=== PATIENT | female | born 1990 | race Hispanic/Latino ===

== ENCOUNTER 2021-11-21 19:39 | Emergency (ER) | payer BC ==
[~2021-11-21] VITALS: Ht 170.2 cm; Wt 72.7 kg
[2021-11-21 21:23] LABS: BILIRUBIN, URINE MANUAL OBSCURED (NEGATIVE); GLUCOSE, URINE (UA) MANUAL NEGATIVE (NEGATIVE); KETONE, URINE MANUAL OBSCURED mg/dL (NEGATIVE); UROBILINOGEN, URINE MANUAL OBSCURED mg/dl (NORMAL)
[2021-11-21 21:51] LABS: RBC, URINE 0-1 /hpf (0-3); SQUAMOUS EPITHELIAL CELL URINE MOD AMOUNT /hpf (SMALL AMT)
[2021-11-21 21:52] LABS: BACTERIA, URINE SMALL AMOUNT; HYALINE CAST, URINE NONE SEEN /lpf (0-1); MUCUS, URINE SMALL AMOUNT (NEGATIVE)
[2021-11-21 21:53] LABS: AMORPHOUS SEDIMENT, URINE SMALL AMOUNT (NEGATIVE)
[2021-11-22] MEDS ORDERED: methocarbamoL 750 MG TAB PO ONE (01:20)
[2021-11-22] MEDS ORDERED: KETOROLAC 60MG 2ML VIAL IM ONE (01:20)
[2021-11-22] MEDS ORDERED: LIDOCAINE 5% (LIDODERM) PATCH TD ONE (01:20)
[2021-11-22 01:37] LABS: BASO % 0.2 % (0.0-1.0); EOS % 0.5 % (0.0-3.0); HEMATOCRIT 39.2 % (36.0-47.0); HEMOGLOBIN 12.7 g/dl (12.0-15.5); LYMPH # 0.8 10^3/uL (1.5-5.0); LYMPH % 9.6 % (24.0-44.0); MEAN CORPUSCULAR HEMOGLOBIN 30.8 pg (27.0-33.0); MEAN CORPUSCULAR HGB CONC 32.4 g/dl (32.0-36.5); MEAN CORPUSCULAR VOLUME 94.9 fl (80.0-96.0); MONO % 11.5 % (2.0-8.0); NEUTROPHILS # 6.8 10^3/uL (1.5-8.5); NEUTROPHILS % 77.9 % (36.0-66.0); PLATELET COUNT, AUTOMATED 226 10^3/uL (150-450); RED BLOOD COUNT 4.13 10^6/uL (4.00-5.40); WHITE BLOOD COUNT 8.7 10^3/uL (4.0-10.0)
[2021-11-22] MEDS: **NOTE PATIENT COMMENT** MISC XX SCH ×2 (01:49→02:50)
[2021-11-22 02:06] LABS: ERYTHROCYTE SEDIMENTATION RATE 59 mm/hr (0-20)
[2021-11-22] MEDS ORDERED: NAPR-837 PO (02:38)
[2021-11-22] MEDS ORDERED: METH-1165 PO (02:38)
[2021-11-22] MEDS ORDERED: ASPE4PAD TOP (02:38)
[2021-11-22] MEDS ORDERED: VALT1TAB PO (02:38)
[2021-11-22] MEDS ORDERED: valACYclovir HCL 500 MG TAB PO ONE (02:40)
[2021-11-22 04:28] VITALS: BP 110/70
[2021-11-22] MEDS ORDERED: cefTRIAXone 500MG VIAL (J0696 PER 250MG) IM ONE (05:20)
[2021-11-22] MEDS ORDERED: AZITHROMYCIN 250MG TABLET PO ONE (05:20)
[2021-11-22] MEDS ORDERED: LIDOCAINE 1% SDV 5ML VIAL DILUENT ONE (05:20)
[2021-11-22 06:02] LABS: GC DNA AMPLIFICATION NEGATIVE (NEGATIVE)
== END 2021-11-22 05:38 | disposition home or self-care (01) ==
LOC: M ED 19:39
DX: A60.04 Herpesviral vulvovaginitis (principal); F17.200 Nicotine dependence, unspecified, uncomplicated
CPT/HCPCS: 72110; 80047; 81000; 81015; 84702; 85025; 85652; 86140; 87086; 87210; 87529; 87661; 87810; 87850; 96372; 99283; J0696; J1885